=== PATIENT | female | born 1995 | race Two or more races ===

== ENCOUNTER 2019-05-06 16:21 | Emergency (ER) | payer OTHER ==
[~2019-05-06] VITALS: Ht 167.6 cm; Wt 86.2 kg
[~2019-05-06 16:21] MED LIST: PRENATAL TABLE1 EAC1 PO
== END 2019-05-06 20:30 | disposition home or self-care (01) ==
LOC: ER 16:21
DX: O26.892 Other specified pregnancy related conditions, second trimester (principal); K52.9 Noninfective gastroenteritis and colitis, unspecified; Z34.02 Encounter for supervision of normal first pregnancy, second trimester

== ENCOUNTER 2019-09-04 11:17 | Inpatient (IN) | payer OTHER ==
[~2019-09-04] VITALS: Ht 167.6 cm; Wt 99.8 kg
[~2019-09-04 11:17] MED LIST changes: +PRENATABS RX T1 EACH PO
== END 2019-09-12 11:18 | disposition home or self-care (01) | DRG 788 ==
LOC: O/R 09-09 06:14 → OB/GYN 09-09 06:14
PROVIDERS: ADMIT Specialist
PROC: 4A1HXCZ Monitoring of Products of Conception, Cardiac Rate, External Approach (ICD-10-PCS; 2019-09-09)
PROC: 4A033R1 Measurement of Arterial Saturation, Peripheral, Percutaneous Approach (ICD-10-PCS; 2019-09-09)
PROC: 10D00Z1 Extraction of Products of Conception, Low, Open Approach (ICD-10-PCS; principal; 2019-09-09 14:30)
DX: O82 Encounter for cesarean delivery without indication (principal); O34.211 Maternal care for low transverse scar from previous cesarean delivery; Z3A.39 39 weeks gestation of pregnancy; Z37.0 Single live birth

== ENCOUNTER → 2025-02-28 | Emergency (ER) | payer OTHER ==
[~2025-02-28] VITALS: Ht 167.6 cm; Wt 104.3 kg
[~2025-02-28] MED LIST changes: +IRON236 MG PO; +RINGERS SOLUTION,LACTATED 1,000 ML IV STA
[2025-02-28 12:02] LABS: BASO % 0.2 % (0.1-1.2); EOS % 0.6 % (0.7-7.0); HEMATOCRIT 28.8 % (34.1-44.9); HEMOGLOBIN 9.2 g/dL (11.2-15.7); LYMPH % 9.2 % (19.3-53.1); MONO # 1.02 (0.24-0.82); MONO % 6.3 % (4.7-12.5); NEUT # 13.35 (1.56-6.13); PLATELET COUNT 335 K/uL (163-369); RED BLOOD COUNT 3.68 M/uL (3.93-5.22); RED CELL DISTRIBUTION WIDTH 14.2 % (11.6-14.4)
[2025-02-28 12:58] LABS: CALCIUM 9.1 mg/dL (8.5-10.1); CREATININE SERUM 0.59 mg/dL (0.55-1.02); GFR 121.37; POTASSIUM 3.84 mEq/L (3.5-5.1)
== END | disposition home or self-care (01) ==
LOC: ER 10:24
PROVIDERS: General Practice
DX: K64.8 Other hemorrhoids (principal); Z88.0 Allergy status to penicillin; Z88.8 Allergy status to other drugs, medicaments and biological substances

== ENCOUNTER 2025-05-01 09:15 | Inpatient (IN) | payer OTHER ==
[~2025-05-01] VITALS: Ht 167.6 cm; Wt 2.7 kg
[~2025-05-01 09:15] MED LIST changes: -RINGERS SOLUTION,LACTATED 1,000 ML IV STA
[2025-05-01 11:27] LABS: BASO % 0.2 % (0.1-1.2); EOS # 0.10 (0.04-0.54); EOS % 0.6 % (0.7-7.0); LYMPH # 1.50 (1.18-3.74); LYMPH % 8.5 % (19.3-53.1); MEAN PLATELET VOLUME 9.80 fl (9.4-12.4); MONO # 1.04 (0.24-0.82); MONO % 5.9 % (4.7-12.5); NEUT # 14.64 (1.56-6.13); NEUT % 82.8 % (34.0-71.1); RED CELL DISTRIBUTION WIDTH 15.7 % (11.6-14.4)
[2025-05-01 11:28] LABS: URINE APPEARANCE Clear; URINE BILIRRUBIN Negative (NEGATIVE); URINE BLOOD Negative; URINE COLOR Yellow; URINE GLUCOSE Negative (NEGATIVE); URINE KETONE 15 (NEGATIVE); URINE LEUKOCYTE Small; URINE NITRATE Negative; URINE PROTEIN Negative (NEGATIVE); URINE UROBILINOGEN 1.0 E.U./dl
[2025-05-01 11:32] LABS: URINE BACTERIA 2879.9 uL (0.0-1933); URINE EPITHELIAL CELLS 35.9 uL (0.0-38.8); URINE RBC 2.3 uL (0.0-20.8); URINE WBC 28.7 uL (0.0-23.2)
[2025-05-01 11:41] LABS: URINE CAST 0.58 uL (0.0-1.40)
[2025-05-01 11:52] LABS: INR 0.94
[2025-05-01 12:13] LABS: ALT/SGPT 17.0 U/L (12-78); AST/SGOT 10.0 U/L (15-37); BILIRUBIN TOTAL 0.48 mg/dL (0.3-1.2); BUN CREA RATIO 12.0 (7.0-25.0); CREATININE SERUM 0.43 mg/dL (0.55-1.02); GFR 173.6; GLOBULINA 4.1 G/DL (2.4-3.5); GLUCOSE FASTING 73.0 mg/dL (65-100); OSMOLALITY SERUM 275.0 MOSM/KG (275-295)
[2025-05-09 05:55] VITALS: BP 112/79
[2025-05-09] MEDS ORDERED: FOLIC ACID0.4 MG (06:09)
[2025-05-09] MEDS ORDERED: ERYTHROMYCIN BASE OPHT 1GM EACH TUBE OP ONE (07:33)
[2025-05-09] MEDS ORDERED: CLINDAMYCIN PHOSPHATE 150 MG/ML (900mg) ONE (07:33)
[2025-05-09] MEDS ORDERED: OXYTOCIN 10 UNITS/ML VIAL ONE (07:33)
[2025-05-09] MEDS ORDERED: MORPHINE SULFATE 4 MG/ML CARTRIDGE IV PRN (09:45)
[2025-05-09] MEDS ORDERED: MORPHINE SULFATE 4 MG/ML VIAL IV ONE (10:10)
[2025-05-09] MEDS ORDERED: SOD FERRIC GLUC COMPLX/SUCROSE 62.5 MG in 0.9 % SODIUM CHLORIDE 50 ML IV SCH (10:35)
[2025-05-09 13:00] VITALS: BP 126/83; O2SAT 100
[2025-05-09 16:19] VITALS: BP 113/75
[2025-05-09] MEDS ORDERED: CLINDAMYCIN PHOSPHATE 900 MG in 0.9 % SODIUM CHLORIDE 100 ML IV SCH (17:00)
[2025-05-09 20:23] VITALS: BP 110/77
[2025-05-10] VITALS: BP 126/80
[2025-05-10] MEDS ORDERED: CLINDAMYCIN PHOSPHATE 150 MG/ML (900mg) ONE (01:04)
[2025-05-10 01:49] LABS: BASO % 0.1 % (0.1-1.2); EOS # 0.02 (0.04-0.54); EOS % 0.1 % (0.7-7.0); LYMPH # 1.09 (1.18-3.74); LYMPH % 5.6 % (19.3-53.1); MEAN PLATELET VOLUME 10.10 fl (9.4-12.4); MONO # 1.47 (0.24-0.82); MONO % 7.6 % (4.7-12.5); NEUT # 16.53 (1.56-6.13); NEUT % 85.7 % (34.0-71.1); RED CELL DISTRIBUTION WIDTH 15.5 % (11.6-14.4)
[2025-05-10 08:15] VITALS: BP 122/81
[2025-05-10] MEDS ORDERED: DOCUSATE SODIUM 100MG CAP PO SCH (09:00)
[2025-05-10] MEDS ORDERED: SIMETHICONE 125 MG CAPSULE PO SCH (09:00)
[2025-05-10] MEDS ORDERED: KETOROLAC TROMETHAMINE 30 MG VIAL IM PRN (13:45)
[2025-05-10 16:16] VITALS: BP 116/81
[2025-05-11 00:35] VITALS: BP 110/63
[2025-05-11 07:54] VITALS: BP 119/88
[2025-05-11 15:54] VITALS: BP 116/71
[2025-05-12 00:28] VITALS: BP 125/77
[2025-05-12] MEDS ORDERED: IBUPROFEN800 MG PO (08:18)
[2025-05-12] MEDS ORDERED: FERROUS SULFAT325 MG PO (08:18)
[2025-05-12 09:07] VITALS: BP 118/80
== END 2025-05-12 12:44 | disposition home or self-care (01) | DRG 788 ==
LOC: O/R 05-09 05:45 → LDR 05-09 07:00 → OB/GYN 05-09 10:36
PROVIDERS: ADMIT Specialist; ATTEND Specialist
PROC: 4A1HXCZ Monitoring of Products of Conception, Cardiac Rate, External Approach (ICD-10-PCS; 2025-05-09)
PROC: 10D00Z1 Extraction of Products of Conception, Low, Open Approach (ICD-10-PCS; principal; 2025-05-09 07:00)
DX: O34.211 Maternal care for low transverse scar from previous cesarean delivery (principal); Z3A.38 38 weeks gestation of pregnancy; Z37.0 Single live birth

== ENCOUNTER 2025-05-07 13:42 | Outpatient (CLI) | payer OTHER ==
[2025-05-07 13:19] VITALS: BP 105/69
[2025-05-07 15:50] VITALS: BP 110/75
[2025-05-07 19:24] VITALS: BP 112/71
== END 2025-05-07 19:39 | disposition home or self-care (01) ==
LOC: OBS/DEL 13:42
PROVIDERS: ATTEND Specialist
DX: O26.893 Other specified pregnancy related conditions, third trimester (principal); O26.849 Uterine size-date discrepancy, unspecified trimester; O36.8199 Decreased fetal movements, unspecified trimester, other fetus; Z3A.37 37 weeks gestation of pregnancy

== ENCOUNTER 2025-05-16 16:32 | Inpatient (IN) | payer OTHER ==
[~2025-05-16] VITALS: Ht 167.6 cm; Wt 105.2 kg
[~2025-05-16 16:32] MED LIST changes: +FERROUS SULFAT325 MG PO; +FOLIC ACID0.4 MG; +IBUPROFEN800 MG PO
[2025-05-16 17:58] LABS: BASO % 0.1 % (0.1-1.2); EOS # 0.19 (0.04-0.54); EOS % 1.3 % (0.7-7.0); LYMPH # 1.49 (1.18-3.74); LYMPH % 10.2 % (19.3-53.1); MEAN PLATELET VOLUME 9.30 fl (9.4-12.4); MONO # 1.03 (0.24-0.82); MONO % 7.1 % (4.7-12.5); NEUT # 11.68 (1.56-6.13); NEUT % 80.0 % (34.0-71.1); RED CELL DISTRIBUTION WIDTH 16.2 % (11.6-14.4)
[2025-05-16 18:22] LABS: ALT/SGPT 15.0 U/L (12-78); AST/SGOT 10.0 U/L (15-37); BILIRUBIN TOTAL 0.25 mg/dL (0.3-1.2); BUN CREA RATIO 17.0 (7.0-25.0); CREATININE SERUM 0.63 mg/dL (0.55-1.02); GFR 111.72; GLOBULINA 4.3 G/DL (2.4-3.5); GLUCOSE FASTING 90.0 mg/dL (65-100); OSMOLALITY SERUM 280.0 MOSM/KG (275-295)
[2025-05-16 18:26] LABS: COVID-19 AG NEGATIVE (NEGATIVE)
[2025-05-17] MEDS ORDERED: CLINDAMYCIN PHOSPHATE 150 MG/ML (900mg) ONE ×2 (00:25→08:38)
[2025-05-17] MEDS ORDERED: CLINDAMYCIN PHOSPHATE 900 MG in DEXTROSE 5 % IN WATER 100 ML IV SCH (01:00)
[2025-05-17 02:15] LABS: URINE APPEARANCE Clear; URINE BILIRRUBIN Negative (NEGATIVE); URINE BLOOD Moderate; URINE COLOR Yellow; URINE GLUCOSE Negative (NEGATIVE); URINE KETONE Negative (NEGATIVE); URINE LEUKOCYTE Negative; URINE NITRATE Negative; URINE PROTEIN Negative (NEGATIVE); URINE UROBILINOGEN 1.0 E.U./dl
[2025-05-17 02:30] LABS: URINE BACTERIA 9.5 uL (0.0-1933); URINE EPITHELIAL CELLS 4.4 uL (0.0-38.8); URINE RBC 104.6 uL (0.0-20.8); URINE WBC 19.2 uL (0.0-23.2)
[2025-05-17 02:45] LABS: URINE CAST 0.00 uL (0.0-1.40)
[2025-05-17 07:52] VITALS: BP 119/82; O2SAT 98
[2025-05-17] MEDS ORDERED: 0.9 % SODIUM CHLORIDE 1,000 ML IV SCH (09:00)
[2025-05-17] MEDS ORDERED: SOD FERRIC GLUC COMPLX/SUCROSE 62.5 MG in 0.9 % SODIUM CHLORIDE 50 ML IV SCH (12:00)
== END 2025-05-17 13:35 | disposition left against medical advice (07) | DRG 776 ==
LOC: ER 16:32 → EMR PED 16:48 → OB/GYN 05-17 11:09
PROVIDERS: Preventive Medicine Public Health & General Preventive Medicine; ADMIT Specialist; ATTEND Specialist
PROC: BW21YZZ Computerized Tomography (CT Scan) of Abdomen and Pelvis using Other Contrast (ICD-10-PCS; principal; 2025-05-17)
DX: O90.89 Other complications of the puerperium, not elsewhere classified (principal); N73.8 Other specified female pelvic inflammatory diseases; Z53.29 Procedure and treatment not carried out because of patient's decision for other reasons

== ENCOUNTER 2025-05-20 16:41 | Emergency (ER) | payer OTHER ==
[~2025-05-20] VITALS: Ht 170.2 cm; Wt 83.0 kg
[2025-05-20] MEDS ORDERED: CLINDAMYCIN PHOSPHATE 900 MG in DEXTROSE 5 % IN WATER 100 ML IV SCH (18:52)
[2025-05-20] MEDS ORDERED: 0.9 % SODIUM CHLORIDE 1,000 ML IV SCH (19:00)
[2025-05-20 22:19] LABS: BASO % 0.2 % (0.1-1.2); EOS # 0.26 (0.04-0.54); EOS % 2.0 % (0.7-7.0); LYMPH # 1.51 (1.18-3.74); LYMPH % 11.9 % (19.3-53.1); MEAN PLATELET VOLUME 9.00 fl (9.4-12.4); MONO # 0.91 (0.24-0.82); MONO % 7.1 % (4.7-12.5); NEUT # 9.95 (1.56-6.13); NEUT % 78.1 % (34.0-71.1); RED CELL DISTRIBUTION WIDTH 15.9 % (11.6-14.4)
[2025-05-20 22:45] LABS: ALT/SGPT 17.0 U/L (12-78); AST/SGOT 11.0 U/L (15-37); BILIRUBIN TOTAL 0.26 mg/dL (0.3-1.2); BUN CREA RATIO 18.0 (7.0-25.0); CREATININE SERUM 0.56 mg/dL (0.55-1.02); GFR 127.99; GLOBULINA 3.9 G/DL (2.4-3.5); GLUCOSE FASTING 88.0 mg/dL (65-100); OSMOLALITY SERUM 282.0 MOSM/KG (275-295)
[2025-05-20 22:47] LABS: ERYTHROCYTE SEDIMENTATION RATE 87 mm/hr (0-20)
[2025-05-20] MEDS ORDERED: CIPROFLOXACIN IN 5 % DEXTROSE 200 ML IV SCH (23:29)
[2025-05-21] MEDS ORDERED: FERROUS SULFAT325 MG PO (07:35)
== END 2025-05-21 12:58 | disposition home or self-care (01) ==
LOC: ER 16:41
PROVIDERS: Preventive Medicine Public Health & General Preventive Medicine
DX: O86.03 Infection of obstetric surgical wound, organ and space site (principal); D64.9 Anemia, unspecified; Z98.891 History of uterine scar from previous surgery; Z88.0 Allergy status to penicillin; Z88.9 Allergy status to unspecified drugs, medicaments and biological substances

== ENCOUNTER 2025-08-03 11:45 | Emergency (ER) | payer OTHER ==
[~2025-08-03] VITALS: Ht 167.6 cm; Wt 92.5 kg
[2025-08-03] MEDS ORDERED: METHYLPREDNISOLONE SOD SUCC 125 MG VIAL IM STA (13:25)
== END 2025-08-03 13:46 | disposition home or self-care (01) ==
LOC: ER 11:45
DX: L50.9 Urticaria, unspecified (principal); R21 Rash and other nonspecific skin eruption; Z88.0 Allergy status to penicillin; Z88.9 Allergy status to unspecified drugs, medicaments and biological substances